=== PATIENT | female | born 1935 | race Caucasian/White ===

== ENCOUNTER 2024-04-05 10:29 | Emergency (ER) | payer MEDICARE, OTHER ==
[2024-04-05 11:45] LABS: INFLUENZA A NAA NEGATIVE (NEGATIVE); INFLUENZA B NAA NEGATIVE (NEGATIVE); RESPIRATORY SYNCYTIAL VIR NAA NEGATIVE (NEGATIVE)
[2024-04-05 11:48] LABS: CORONAVIRUS COVID-19 NAA POSITIVE (NEGATIVE)
== END 2024-04-05 13:34 | disposition home or self-care (01) ==
LOC: JP.ED 10:29
DX: U07.1 COVID-19 (principal)
CPT/HCPCS: 0241U; 71046; 99283